=== PATIENT | female | born 1945 | race Caucasian/White ===

== ENCOUNTER → 2017-02-09 | Outpatient (CLI) | payer MEDICARE, MEDICAID ==
[~2017-02-09] MED LIST: ALEVE220 MG PO; AVONEX30 MCG/0.5 IM; BACLOFEN10 MG PO; CALCIUM 600 +1 EAC6 PO; NORVASC2.5 MG PO; SENNA-S TABLET1 EACH PO; SENNA8.6 MG PO; TYLENOL325 MG PO; VITAMIN B-12250 MCG PO
--- NOTE | ~2017-02-09 | PUL ---
PATIENT'S NAME: [facility] AGE: 71 Y [address] ROOM: [place] [id number] LOCATION: [facility] ADMIT DATE: 02/09/2017 Pulmonary DISCHARGE DATE: FAMILY PHYSICIAN: SHAAN HADDAD MD ATTENDING PHYSICIAN: KWASI COUCH NAME OF PROCEDURE: Sleep study DATE OF PROCEDURE: 02/09/17 TECH: RADHA Singh TEST #: [facility]# [id number] MEDICAL HISTORY: Patient is a 71-year-old woman with daytime sleepiness, pulmonary hypertension and snoring. SLEEP STAGE SUMMARY: The patient was studied for 242 minutes of which she slept 158 minutes. She fell asleep in 2.5 minutes and slept for 65% of the night. The patient is on oxygen at all times at 3 liters. Sleep architecture revealed a decline in REM sleep. RESPIRATORY SUMMARY: The patient was placed on 3 liters at the beginning of this study. There were 15 apneas and no hypopneas for an apnea/hypopnea index near normal at 5.7 events per hour. Oxygen saturations ranged from 88-99%. The patient spent the entire night sleeping supine. Light to moderate snoring was noted. Around 2:00 am she became agitated and requested that the study be ended. EKG SUMMARY: Average heart rate during sleep 84 beats per minute. LIMB MOVEMENT SUMMARY: No clinically relevant periodic limb movements were noted. SUMMARY: Mild obstructive sleep apnea. It may be more severe than this study suggests due to blunting of desaturations by her supplemental oxygen. Some respiratory events may therefore not have been counted because that did meet criteria for apneas or hypopneas. PLAN: Patient will receive results from the ordering provider. DEXTER TRAN MD PATIENT'S NAME: [facility] AGE: 71 Y [address] ROOM: [place] [id number] LOCATION: [facility] ADMIT DATE: 02/09/2017 Pulmonary DISCHARGE DATE: FAMILY PHYSICIAN: SHAAN HADDAD MD ATTENDING PHYSICIAN: KWASI COUCH [facility]/ /[id number] dtt: 02/27/17 1017 , Dexter Tran dtd: 02/12/17 0808
== END | disposition disaster alternative care site (69) ==
LOC: GSLP 20:30
DX: G47.19 Other hypersomnia (principal); G47.33 Obstructive sleep apnea (adult) (pediatric); I27.2 Other secondary pulmonary hypertension

== ENCOUNTER → 2017-02-10 | Outpatient (CLI) | payer MEDICARE, MEDICAID | END | disposition disaster alternative care site (69) | LOC: GRAD 08:00 | DX: Z87.891 Personal history of nicotine dependence (principal) | CPT/HCPCS: G0297 ==